=== PATIENT | female | born 1995 | race Caucasian/White ===

== ENCOUNTER 2019-08-27 10:22 | Day surgery (SDC) | payer MEDICAID, OTHER ==
[~2019-08-27 10:22] MED LIST: CLINDAMYCIN 600 MG/D5W RTU 600 MG/50 ML RTUPB IV ONE; CLINDAMYCIN 600 MG/D5W RTU 600 MG/50 ML RTUPB IV PRN; RINGERS SOLUTION,LACTATED 1,000 ML IV PRN
[2019-08-27] MEDS ORDERED: MICROFIBRILLAR COLLAGEN 1 GM PACK ONE (10:49)
[2019-08-27] MEDS ORDERED: LIDOCAINE 1%/EPINEPHRINE INJ 20 ML VIAL ONE (10:49)
[2019-08-27 11:05] LABS: HEMATOCRIT 45.7 % (36.0-47.0); HEMOGLOBIN 15.7 g/dL (12.0-15.5); MEAN CORPUSCULAR HEMOGLOBIN 30.6 pg (27.0-33.4); MEAN CORPUSCULAR HGB CONC 34.4 g/dL (32.0-36.0); MEAN CORPUSCULAR VOLUME 89 fl (80-97); PLATELET COUNT 277 10^3/uL (150-450); RED BLOOD COUNT 5.13 10^6/uL (3.72-5.28); RED CELL DISTRIBUTION WIDTH 12.4 % (11.5-14.0); WHITE BLOOD COUNT 5.5 10^3/uL (4.0-10.5)
[2019-08-27] MEDS ORDERED: MIDAZOLAM 2 MG/2 ML INJ ONE ×2 (11:21→12:00)
[2019-08-27] MEDS ORDERED: PROPOFOL INJ 200 MG/20 ML VIAL IV ONE ×2 (12:00→12:32)
[2019-08-27] MEDS ORDERED: FENTANYL CITRATE INJ/PF 100 MCG/2 ML AMPUL ONE (12:00)
[2019-08-27] MEDS ORDERED: LIDOCAINE 1%/EPINEPHRINE INJ 20 ML VIAL INJ ONE (12:40)
--- NOTE | 2019-08-27 13:51 | Operative Report ---
Operative Report DATE OF SURGERY: 08/27/19 PREOPERATIVE DIAGNOSIS: Fibroadenoma right breast POSTOPERATIVE DIAGNOSIS: Same OPERATION: Complete open excision of right breast fibroadenoma with use of ultrasonography SURGEON: MARÍA HDEZ CONDENSER OPERATOR: BEBE ORELLANA ANESTHESIA: LMAC TISSUE REMOVED OR ALTERED: Fibroadenoma right breast COMPLICATIONS: None QUANTITATIVE BLOOD LOSS: 0 INTRAOPERATIVE FINDINGS: See below PROCEDURE: Patient was seen in the preop holding area the right breast was marked. She was then taken the main operating room where LMAC anesthesia was induced. Right arm was abducted, right breast exposed, prepped and draped in sterile fashion. Surgical plan and surgical timeout were conducted. The right breast was scanned with a variable frequency linear transducer. The 5-1/2+ centimeter right breast mass between the 12 and 2 o'clock position, periareolar was appreciated. This is a nearly homogeneous, well-circumscribed, horizontally oriented mass. The skin at the areolar border was anesthetized with 1% plain lidocaine. Approximately 2-1/2 to 3 cm incision was made, curvilinear, with a #10 blade right on the areolar border. Using a combination of gentle hemostat and electrocautery dissection, the fibroadenoma anterior surface was exposed. A 0 silk suture was placed in the substance of the fibroadenoma for gentle traction. The fibroadenoma was dissected cleanly and freely from surrounding breast parenchyma. It was excised in its entirety. Sutures were removed, and it weighed in at approximately 6 cm in maximum length. It was bisected with a #10 blade on the back table and felt to be consistent with benign fibroadenoma. The specimen was sent to pathology for permanent analysis We reinspected the operative cavity and it was dry. Wound was closed with 3-0 Vicryl, interrupted, the dermal level, and skin glue applied. Her graph patient tolerated procedure well, taken recovery in stable condition.
--- NOTE | 2019-08-27 13:53 | Discharge Summary ---
Discharge Summary (SDC) - Discharge Final Diagnosis: Fibroadenoma right breast Date of Surgery: 08/27/19 Discharge Date: 08/27/19 Condition: Good Treatment or Instructions: Wear supportive bra; take Toradol as needed pain; may shower in 24 hours; up with [facility] or comparable disease education specialist in the next 10 days to 2 weeks. Referrals: TIO BRADLEY MD [Primary Care Provider] - Discharge Diet: As Tolerated Discharge Activity: Activity As Tolerated Home Care Assistance: None Needed Report the Following to Your Physician Immediately: Shortness of Breath, Increase in Pain, Fever over 101 Degrees
[2019-08-27 15:10] VITALS: BP 97/57
== END 2019-08-27 15:20 | disposition home or self-care (01) ==
LOC: OROUT 10:22
PROVIDERS: ATTEND Surgery
DX: N63.10 Unspecified lump in the right breast, unspecified quadrant (principal); D24.1 Benign neoplasm of right breast
CPT/HCPCS: 36415; 85027; 81025; 00400; 19120; J2250; J3010; J3490; J2704; 400